=== PATIENT | male | born 1980 | race African-American/Black ===

== ENCOUNTER 2017-03-12 10:14 | Emergency (ER) | payer OTHER ==
[2017-03-12] MEDS ORDERED: ALPRAZolam 0.5 MG TABLET PO ONE (11:15)
[2017-03-12] MEDS ORDERED: ALPRAZolam 0.25 MG TABLET ONE (11:19)
--- NOTE | 2017-03-12 11:31 | PHYS DOC ---
General Chief Complaint: SHORTNESS OF BREATH Stated Complaint: SOA,CHEST PRESSURE,HANDS TINGLING Time Seen by MD: 10:24 Problems: History of Present Illness Allergies: Coded Allergies: No Known Drug Allergies (Unverified , 03/12/17) Orders, Labs, Meds EKG: Normal sinus rhythm 63 bpm, there is ST elevation in leads V2 V3 V5 and V6 with no reciprocal changes. Interpreted by me. Nevertheless I did request that nutrition instructor installation tech Dr. Strong review the EKG which he did confirming no STEMI. 1314: I find the patient asleep in his exam room. When I wake him he states his symptoms have completely resolved with the Xanax. Departure Time of Disposition: 13:15 Disposition: 01 HOME, SELF-CARE Diagnosis: panic attack Condition: IMPROVED Patient Instructions: Anxiety and Panic Attacks, [id number] Additional Instructions: Please review the patient education materials given by ED staff. Continue to exercise stress management tool, consider counseling. Prescription: Xanax Follow-up at [facility] for next available appointment for recheck. Return to ED with new or changing symptoms. KARL JACKSON DO Mar 12, 2017 11:31
[2017-03-12 11:32] LABS: BASO % 0 % (0-3); EOS % 0 % (0-3); HEMATOCRIT 42.7 % (39.0-53.0); HEMOGLOBIN 15.1 g/dL (13.0-17.5); LYMPH # 1.3 x10^3/uL (1.0-4.8); LYMPH % 19 % (24-48); MEAN CORPUSCULAR HEMOGLOBIN 31 pg (25-35); MEAN CORPUSCULAR HGB CONC 35 g/dL (31-37); MEAN CORPUSCULAR VOLUME 87 fL (79-100); MONO # 0.4 x10^3/uL (0.0-1.1); MONO % 6 % (0-9); NEUT % 74 % (31-73); PLATELET COUNT 271 x10^3/uL (140-400); RED BLOOD COUNT 4.91 x10^6/uL (4.30-5.70); RED CELL DISTRIBUTION WIDTH 12.7 % (11.5-14.5); WHITE BLOOD COUNT 6.8 x10^3/uL (4.0-11.0)
[2017-03-12 11:49] LABS: CALCIUM 9.1 mg/dL (8.5-10.1); CREATININE 1.3 mg/dL (0.7-1.3); GFR 61.8; POTASSIUM 3.5 mmol/L (3.5-5.1); TOTAL PROTEIN 7.9 g/dL (6.4-8.2)
[2017-03-12] MEDS ORDERED: ALPRAZolam 0.25 MG TABLET PO ONE (12:00)
--- NOTE | 2017-03-12 12:17 | RAD ---
EXAM: Chest, single view. HISTORY: Dyspnea. COMPARISON: None. FINDINGS: A frontal view of the chest is obtained. There is no infiltrate, effusion or pneumothorax. The heart is normal in size. IMPRESSION: No acute pulmonary finding.
[2017-03-12] MEDS ORDERED: ALPR0.25 PO (13:14)
--- NOTE | 2017-03-12 13:29 | EKG ---
[address] [address] Test Date: 2017-03-12 Test Time: 10:36:16 Pat Name: ALEIDA SILVA Department: Room: Gender: M Blending Technician: HAMMAD : 1980 Requested By: KARL JACKSON Order Number: [id number] Reading MD: Franklin Linda MD Measurements Intervals [place] Rate: 63 P: 75 [place]: 182 QRS: 89 QRSD: 96 T: 38 QT: 410 QTc: 423 Interpretive Statements SINUS RHYTHM Electronically Signed On 03-20-2017 23:43:10 GUIDE CRUISE by Franklin Linda MD
[2017-03-12 13:30] VITALS: BP 120/69
== END 2017-03-12 13:35 | disposition home or self-care (01) ==
LOC: ER 10:14
DX: F41.0 Panic disorder [episodic paroxysmal anxiety] (principal)
CPT/HCPCS: 36415; 71045; 80053; 82553; 84484; 85025; 85379; 85610; 85730; 93005; 99285